=== PATIENT | male | born 1960 | race Two or more races ===

== ENCOUNTER → 2025-02-21 | Outpatient (CLI) | payer BC, SELFPAY ==
--- NOTE | 2025-02-21 | XR_ITS ---
Examination: CT chest, without intravenous contrast. Sagittal and coronal 2-D reconstructions. Exam date and time: February 21, 2025 1137 hours INDICATIONS: Smoking history 40 years CTDI:vol (mGy) 15.1 DLP: (mGycm) 655 Technique: Multiple 3.0 mm axial sections of the chest to been obtained. Bone and lung density settings are obtained. Sagittal and coronal 2-D reconstructions have been obtained. Low dose protocols were performed. One or more of the following dose reduction techniques were used; automated exposure control, adjustment of the mA and/or KV according to patient size, use of iterative reconstruction technique. Findings: No thoracic aortic aneurysm dilatation Pulmonary artery segments are not enlarged No paratracheal tracheobronchial or bronchopulmonary adenopathy 3 mm pulmonary nodule left upper lobe image 85 No pneumonia or pulmonary edema or pleural disease No visualized liver or splenic lesion Contracted gallbladder Kidneys partially visualized no hydronephrosis No pancreatic mass Mild thoracic spondylosis IMPRESSION: 3 mm pulmonary nodule left upper lobe, with this study as baseline suggest 6 month follow-up CT chest without contrast
--- NOTE | 2025-02-21 11:00 | XR_ITS ---
Examination: Ultrasound soft tissue forehead TECHNIQUE: Grayscale sonographic images soft tissue forehead Date and time: February 21, 2025 11:15 AM INDICATIONS: Palpable lumps in the right lateral forehead noticed beginning 7 months ago. FINDINGS: 18 x 4 x 14 mm hypoechoic mass consistent with lipoma in the soft tissue right lateral forehead IMPRESSION: Findings most consistent with benign lipomatous mass, recommend 3-6 month follow-up ultrasound study
== END | disposition home or self-care (01) ==
PROVIDERS: Referring Provider Internal Medicine; Visit Provider Internal Medicine
DX: Z12.2 Encounter for screening for malignant neoplasm of respiratory organs (principal); R22.0 Localized swelling, mass and lump, head; R91.1 Solitary pulmonary nodule
CPT/HCPCS: 71271; 76536